=== PATIENT | female | born 1935 | race Two or more races ===

== ENCOUNTER 2022-08-23 00:13 | Emergency (ER) | payer OTHER ==
[~2022-08-23] VITALS: Ht 152.4 cm; Wt 54.0 kg
[2022-08-23 01:01] VITALS: BP 100/56
== END 2022-08-23 02:48 | disposition left against medical advice (07) ==
LOC: ER 00:13 → EDBD 00:13 → ER 02:48
DX: F41.9 Anxiety disorder, unspecified (principal); M79.10 Myalgia, unspecified site; R07.89 Other chest pain; Z53.21 Procedure and treatment not carried out due to patient leaving prior to being seen by health care provider
CPT/HCPCS: 93005